=== PATIENT | female | born 1935 | race Caucasian/White ===

== ENCOUNTER 2017-01-08 12:35 | Emergency (ER) | payer MEDICARE ==
[~2017-01-08] VITALS: Ht 154.9 cm; Wt 50.0 kg
[2017-01-08 12:37] VITALS: BP 171/94; PULSE 76; RESP 17; O2SAT 96
--- NOTE | 2017-01-08 13:02 | ED.REPORT ---
HPI-Extremity Problem Lower Date of Service Jan 08, 2017 ED Provider: Aris Elena MD Pt is an 81 year old female who presents to the ED with concerns for right calf tenderness that has been moving upwards. She denies noticing any swelling in her lower extremities, or recent extended periods of immobilization. She denies a history of blood clots. Pt reports taking estrogen on a regular basis. She denies any shortness of breath, chest pain, redness of the lower extremities, or any other symptoms. Nursing Notes Stated Complaint: SUSPECTED DVT Chief Complaint: General Complaint Nursing Notes Reviewed: Yes Allergies: Coded Allergies: No Known Allergies (Unverified , 01/08/17) General Time Seen by MD: 12:42 Chief Complaint Other (Right leg pain) Hx Obtained From: Patient, Daughter Arrived By: Walk-in Onset Occurred: Just prior to arrival Symptom Duration: Since onset Severity: Current: Mild Severity: Maximum: Mild Similar Sx Previous: Yes Past Medical History Past Medical History Denies Review of Systems Constitutional: Denies: Chills, Fever, Malaise, Weakness - generalized Musculoskeletal: Reports: Extremity pain, Denies: Back pain, Neck pain Skin: Denies Diaphoresis, Denies Swelling Neurologic: Denies: Change LOC, Dizziness, Headache, Syncope Complete sys rev & neg: except as marked. Physical Exam Initial Vital Signs Vital Signs (First) Date Time Temp Pulse Resp B/P Pulse Ox O2 Delivery O2 Flow Rate FiO2 01/08/17 12:37 36.6 76 17 171/94 96 Room Air Initial VS: Reviewed General/Constitutional: Well-developed, Well-nourished Head / Eyes: Atraumatic, Normocephalic, PERRL ENT: Mucous membranes moist, Conjunctiva normal, No scleral icterus Neck: Supple, Non-tender, Full range of motion Respiratory: Breath sounds normal, Clear to auscultation, No respiratory distress Cardiovascular: Regular rate & rhythm, Heart sounds normal, Intact distal pulses Abdomen / GI: Soft, Non-tender, No guarding, No rebound, No distention Skin: Warm, Dry, No cyanosis Neurologic: Alert, Oriented, Nonfocal Lower Extremity / Pelvis / MS: Atraumatic, Inspection NL, Full range of motion Good DP and PT pulses Good sensation Well perfused Calf tenderness about medial aspect of her right calf Ankle / Foot: Atraumatic, Inspection NL, Full range of motion, No swelling, No erythema, Non-tender, No deformity, Neurologic intact, Vascular intact, No edema Re-Eval/Medical Decision Med Decision/Clinical Course Patient presents with right calf tenderness. There is no appreciable swelling. There is no evidence of abscess or cellulitis. She is neurovascularly intact in the affected extremity. There is no history of significant trauma. She is concerned for DVT though my clinical suspicion is relatively low. That being said she is on exogenous estrogen. Duplex ultrasound reveals no evidence of blood clot. Overall presentation and history seems most consistent with muscle strain. Advised to use ice packs and stretch. Prior to discharge follow-up and return precautions were reviewed in detail with the patient who verbalized understanding and agreement with the plan. The patient was discharged in stable condition. Source of Hx: Old records Re-Evaluation/Progress : Re-Evaluation/Progress Note: Pt is rechecked and informed of her imaging results and the plan to discharge her at this time. She understands and agrees, all questions are addressed. Counseled Regarding: Diagnosis, Lab results, Need for follow-up, When/why to return to ED Discharge & Departure Impression: Primary Impression: Calf pain Laterality: right Qualified Code: M79.661 - Pain in right lower leg Additional Impression: Encounter for monitoring postmenopausal estrogen replacement therapy Disposition: Home Discharge Condition All VS Reviewed: Yes Condition: Stable Additional Instructions: Thank you for seeking care at the emergency room. It is difficult for us to make definitive diagnoses in the ED but we believe that you are experiencing generalized calf pain. Our primary goal today in the ED was to evaluate you for any life-threatening conditions. Your evaluation was reassuring. You should follow-up with your primary doctor as needed You should return to the ED immediately if you develop worsening leg pain, fevers, vomiting, cough, shortness of breath, chest pain, lightheadedness, weakness or any other concerning signs or symptoms. Thank you for letting us partake in your care today. Referrals: Maxx Gallardo MD (PCP) [place] Attestation Portions of this note were transcribed by Kaila Love. I, Dr. Elena personally performed the history, physical exam and medical decision-making; I reviewed and confirmed the accuracy of the information in the transcribed note. Signed by: Carmen Neil, 01/08/2017 13:58 copies to: Maxx Gallardo MD, Beck O MD Jan 08, 2017 13:02 TRE LOVE Jan 08, 2017 13:37
--- NOTE | 2017-01-08 15:47 | DRSVH ---
PROCEDURE: US VEINOUS LEG DUPLEX UNILATERAL, RIGHT INDICATIONS: Swelling and pain. TECHNIQUE: Real-time imaging, as well as color and pulse Doppler interrogation, were performed of the lower extr emity deep veins from the inguinal ligament to the popliteal fossa. COMPARISON: None. FINDINGS: The deep veins are normally compressible, and free of intraluminal thrombus. Color and pu lse Doppler demonstrate normal phasic intraluminal flow. There is normal augmentation response to di stal compression maneuver. IMPRESSION: 1. No evidence of deep venous thrombosis in the right lower extremity. Dictated by: Edinson Mckeon M.D. on 01/08/2017 at 15:44 Approved by: Edinson Mckeon M.D. on 01/08/2017 at 15:45
== END 2017-01-08 15:30 | disposition home or self-care (01) ==
LOC: SED 12:35
DX: M79.661 Pain in right lower leg (principal); E78.00 Pure hypercholesterolemia, unspecified; I10 Essential (primary) hypertension; Z87.891 Personal history of nicotine dependence; Z90.710 Acquired absence of both cervix and uterus; Z79.890 Hormone replacement therapy